=== PATIENT | male | born 1995 ===

== ENCOUNTER 2016-11-08 00:49 | Inpatient (IN) | payer OTHER ==
[2016-11-08 01:10] VITALS: O2SAT 99
--- NOTE | 2016-11-08 01:55 | ED PDOC ---
HPI: Psych/Substance Abuse Time Seen by Provider: 11/08/16 01:08 Chief Complaint (Nursing): Psychiatric Evaluation Chief Complaint (Provider): Depression History Per: Patient History/Exam Limitations: no limitations Onset/Duration Of Symptoms: Days (x 2 weeks) Current Symptoms Are (Timing): Still Present Associated Symptoms: Depression, Suicidal Thoughts, Suicidal Plan Additional Complaint(s): Alonso is a 21 y/o [place]ian male with a past medical history of depression who presents to the ED for crisis evaluation. States he left his family home 2 weeks ago and has been living on the streets of [facility]. Patient admits to feeling depressed and having suicidal ideations with a plan to hang himself. Reports history of two psychiatric admissions in the past, and noncompliance with psych medications and follow up. PMD: Dr. Hou Past Medical History Reviewed: Historical Data, Nursing Documentation, Vital Signs Vital Signs: Last Vital Signs Temp 98.7 F 11/08/16 00:55 Pulse 85 11/08/16 00:55 Resp 17 11/08/16 00:55 BP 137/85 11/08/16 00:55 Pulse Ox 99 11/08/16 00:55 - Medical History PMH: Depression - Family History Family History: States: Unknown Family Hx - Social History Current smoker - smoking cessation education provided: No Alcohol: None Drugs: Denies - Allergies Allergies/Adverse Reactions: Allergies Allergy/AdvReac Type Severity Reaction Status Date / Time pollen extracts Allergy Mild itchiness, Verified 11/08/16 01:10 red eyes Review of Systems ROS Statement: Except As Marked, All Systems Reviewed And Found Negative Psych: Positive for: Depression, Suicidal ideation. Negative for: Other ( auditory/visual hallucinations) Physical Exam - Reviewed Nursing Documentation Reviewed: Yes Vital Signs Reviewed: Yes - Physical Exam Appears: Positive for: Non-toxic, No Acute Distress Head Exam: Positive for: ATRAUMATIC, NORMAL INSPECTION, NORMOCEPHALIC Skin: Positive for: Normal Color, Warm, Dry Eye Exam: Positive for: EOMI, Normal appearance, PERRL Neck: Positive for: Normal, Painless ROM Cardiovascular/Chest: Positive for: Regular Rate, Rhythm. Negative for: Murmur Respiratory: Positive for: Normal Breath Sounds. Negative for: Accessory Muscle Use, Respiratory Distress Gastrointestinal/Abdominal: Positive for: Normal Exam, Soft. Negative for: Tenderness Back: Positive for: Normal Inspection. Negative for: L CVA Tenderness, R CVA Tenderness, Vertebral Tenderness Extremity: Positive for: Normal ROM, Capillary Refill (< 2 sec). Negative for: Pedal Edema, Deformity Neurologic/Psych: Positive for: Alert, Oriented, Mood/Affect (Flat), Other ( Appears internally preoccupied) - Laboratory Results Result Diagrams: 11/08/16 01:57 11/08/16 01:28 - ECG O2 Sat by Pulse Oximetry: 99 (RA) Pulse Ox Interpretation: Normal Medical Decision Making Medical Decision Making: Time: 1:16 Initial Impression: 21 y/o male with depression and suicidal ideations in set of known depression history Initial Plan: --Ordered crisis evaluation, EKG, and labs --Placed on 1:1 observation Time: :34 Clinical Impression: Depression --Labs show no clinically significant abnormalities --Evaluated by crisis and will be admitted for treatment and further workup with diagnosis of depression --Patient is medically stable for psychiatric admission Scribe Attestation: Documented by Yulisa Jackson, acting as a scribe for Wu Barrios MD Provider Scribe Attestation: All medical record entries made by the Scribe were at my direction and personally dictated by me. I have reviewed the chart and agree that the record accurately reflects my personal performance of the history, physical exam, medical decision making, and the department course for this patient. I have also personally directed, reviewed, and agree with the discharge instructions and disposition. Disposition - Clinical Impression Clinical Impression: Depression - Patient ED Disposition Is Patient to be Admitted: Yes - Disposition Disposition: Transfer of Care Disposition Time: 03:34 Condition: FAIR Forms: [employer] (Taiwanese) Patient Signed Over To: Andree Chávez - Pt Status Changed To: Hospital Disposition Of: Inpatient - Admit Certification Admit to Inpatient:: After my assessment, the patient will require hospitalization for at least two midnights. This is because of the severity of symptoms shown, intensity of services needed, and/or the medical risk in this patient being treated as an outpatient. - POA Present On Arrival: None
[2016-11-08 01:57] LABS: RBC URINE 4 /hpf (0-3); URINE BACTERIA OCC (<OCC); URINE BILIRUBIN NEGATIVE (NEGATIVE); URINE BLOOD NEGATIVE (NEGATIVE); URINE CALCIUM OXALATE CRYSTALS OCC /hpf (<OCC); URINE COLOR YELLOW (YELLOW); URINE GLUCOSE (UA) NEG (Normal); URINE KETONE NEGATIVE (NEGATIVE); URINE LEUKOCYTE ESTERASE NEG Leu/uL (Negative); URINE PROTEIN NEGATIVE (NEGATIVE); URINE UROBILINOGEN 0.2-1.0 mg/dL (0.2-1.0); WBC URINE 1 /hpf (0-5)
[2016-11-08 02:03] LABS: BASO # 0.1 K/uL (0.0-0.2); BASO % 0.9 % (0.0-2.0); EOS # 0.6 K/uL (0.0-0.7); EOS % 5.8 % (0.0-4.0); HEMATOCRIT 41.4 % (35.0-51.0); LYMPH # 3.7 K/uL (1.0-4.3); LYMPH % 36.7 % (20.0-40.0); MEAN CELL VOLUME 81.3 fl (80.0-94.0); MEAN CORPUSCULAR HEMOGLOBIN 27.2 pg (27.0-31.0); MEAN CORPUSCULAR HGB CONC 33.4 g/dL (33.0-37.0); MONO # 0.8 K/uL (0.0-0.8); MONO % 7.9 % (0.0-10.0); NEUT # 4.9 K/uL (1.8-7.0); NEUT % 48.7 % (50.0-75.0); RED CELL DISTRIBUTION WIDTH 12.4 % (11.5-14.5); WHITE BLOOD COUNT 10.1 K/uL (4.8-10.8)
[2016-11-08 02:03] LABS: BLOOD UREA NITROGEN 14 mg/dl (9-20); CHLORIDE 106 mmol/L (98-107); GFR AFRICAN-AMERICAN > 60; GLUCOSE,RANDOM 98 mg/dL (75-110); POTASSIUM 4.2 MMOL/L (3.6-5.0); SODIUM 139 mmol/l (132-148)
[2016-11-08 02:04] LABS: ALB/GLOB RATIO 1.4 (1.0-2.1); ALCOHOL SERUM < 10 mg/dl (0-10); ALKALINE PHOSPHATASE 63 U/L (38-126); ALT/SGPT 44 U/L (21-72); AST/SGOT 31 U/L (17-59); BILIRUBIN,TOTAL 0.7 mg/dl (0.2-1.3); CALCIUM 9.4 mg/dL (8.4-10.2); CARBON DIOXIDE 25 mmol/L (22-30); TOTAL PROTEIN 6.8 G/DL (6.3-8.2)
[2016-11-08] MEDS ORDERED: Alum-Mag Hydrox-Simethicone Susp (30 mL) PO PRN (06:07)
[2016-11-08] MEDS ORDERED: Magnesium Hydroxide Susp 30 ml UD PO PRN (06:07)
[2016-11-08] MEDS ORDERED: DiphenhydrAMINE 50 mg/ml Inj IM PRN (06:07)
--- NOTE | 2016-11-08 06:22 | PCM.BM ---
<Adam Barbour - Last Filed: 11/08/16 06:21> Treatment Plan Problems - Problems identified on initial assessmt Hopelessness/ Helplessness Date Initiated: 11/08/16 Time Initiated: 06:21 Assessment reference: NA Status: Active Treatment assets and liabiliti Patient Assests: cooperative, ADL independent, physically healthy Patient Liabilities: poor support system - Milieu Protocol Maintain good personal hygiene: every shift Encourage regular showers, every shift Remind patient to perform daily oral care, every shift Assist patient to perform ADL's Maintain personal safety: daily Educate patient to report safety concerns to staff, daily Monitor environment for contraband/sharps Medication safety: Monitor for expected outcome, potential side effects: daily, Assess barriers to learning: daily, Assess readiness for medication education: daily <Andree Chávez - Last Filed: 11/08/16 12:37> - Diagnosis (1) Bipolar disorder Status: Acute Interventions: Medication management, Individual and group therapy, Psychoeducation 11/08/16 12:37 <Elke Adams - Last Filed: 11/09/16 11:57> Family Contact Family contact: Patient agrees to contact, Telephone contact initiated by staff , Family meeting planned to review treatment plan Family contact name: Kwame Sanchez (cousin) Family contacted how many times per week?: 2 Family contact comment: [phone] - Goals for Treatment Patient goals for treatment: "I want this feeling to stop, it is disturbing." Discharge/Continuing Care - Education Needs Education Needs: Family Medication, Family Diagnosis/Disease Process, Family Coping Skills, Family Placement options, Family Community resources, Family Aftercare Safety Plan, Patient Medication, Patient Diagnosis/Disease Process, Patient Coping Skills, Patient Placement options, Patient Community resources, Patient Aftercare Safety Plan - Discharge Discharge Criteria: Tolerates medication w/o severe side effects, Normal sleep pattern, Reduction of target symptoms, Other (Medication compliance; less manic episodes) Discharge to:: Home, With Family - Additional Comments 11/09/16 10:55 Pt seen and discussed in team meeting. Reason for admission discussed and reviewed at length. Pt's medical and social issues discussed. Pt's medications reviewed. Attending psychiatrist, provided medication education and recommendations. Pt is not agreeable to increasing Abilify at the moment. Tx plan discussed and pt is agreeable. Pathologist Assistant will continue to follow case - Treatment Team Participation Discussed with Family/SO: Yes (Will discuss via telephone) Was Patient/Family/SO present at Treatment Team Meeting: Yes
--- NOTE | 2016-11-08 08:31 | PCM.PSYCH ---
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 Pt stated he has been feeling depressed for 3 years and stated tonight he is suicidal with a plan to hang himself. Pt stated instead of him hanging himself, he came into ED due to him knowing that is where he will end up if he hangs himself. Pt stated he has attempted to hang himself 4-5 months ago but stopped due to the fear of someone finding him. Pt stated he is unhappy with the world and nature. Pt stated he does not feel interested in anything and does not want to put the effort into being interested in anything. Pt denied HI/AH/VH. Pt stated he left his home where he stays with his parents and brother in [place], [place] 2 weeks ago. Pt stated he left his home due to bad choices he has made in the past and that he has let his family down. Pt could not elaborate on what he meant by the previous statement when cw asked a few times. Pt stated this is not the first time he has left the home, so his family is used to it. Pt stated his sleep and appetite are normal. Patient reports that 2 years ago he has an episode in which he left his home for two weeks without telling anyone, spent all of his money, used his credit cards, lived in hotels in [facility] where he planned various ways to kill himself. Then he went to [place] without any money and continued to plan to kill himself. His parents reported him as a missing person. Eventually he called his ex-girlfriend and his family was able to find him. He reports that he has periods of time with racing thoughts, decreased need for sleep and increased goal oriented activities. He reports that he stopped going to school because he felt that he could study on his own and spent several days reading book, trying to learn to computer programing by himself. Currently the patient is circumstantial/tangential. He expressed some grandiose ideation that he is more skilled/talented than others. He reports that he feels that he may not be safe if he would leave the hospital due to continued suicidal ideation. He is able to contract for safety while admitted Concert Singer discussed starting Abilify 10 mg PO Daily. r/b/se reviewed. Patient given a handout on Abilify. PPHx: Pt stated he was inpatient at [facility] 3 years ago and 1 year ago was inpatient at [facility] in [place]. No current outpatient treatment or medications. He does not know which medications he took in the past. PMHx: Denies acute medical issues All: Pollen SHx: Unemployed, previously worked in a [employer]. Lives w/ parents. Denies current drug use, but does reports that he snorted heroin and smoked crack a year ago. Pt stated he drinks beer and whiskey occasionally and smokes marijuana sometimes. Pt stated he has had a DUI 6-7 months ago and was in trouble 3 years ago for possession of marijuana at a alliance party. Utox negative. FHx: Denies family history of mental illness Current Medications: Active Medications Generic Name Dose Route Start Last Admin Trade Name Freq PRN Reason Stop Dose Admin Acetaminophen 650 mg 11/08/16 06:07 Tylenol 325mg Tab PO Q4 PRN Pain, moderate (4-7) Al Hydrox/Mg Hydrox/Simethicone 30 ml 11/08/16 06:07 Maalox Plus 30 Ml PO Q4 PRN Dyspepsia Diphenhydramine HCl 50 mg 11/08/16 06:07 Benadryl IM Q6 PRN Extrapyramidal S/S Unable PO Diphenhydramine HCl 50 mg 11/08/16 06:07 Benadryl PO Q6 PRN Extrapyramidal Symptoms Diphenhydramine HCl 50 mg 11/08/16 06:07 Benadryl PO HS PRN Sleep Haloperidol 5 mg 11/08/16 06:07 Haldol PO Q4 PRN Agitation Haloperidol Lactate 5 mg 11/08/16 06:07 Haldol IM Q4 PRN Agitation, Unable to Take PO Lorazepam 2 mg 11/08/16 06:07 Ativan IM Q4 PRN Anxiety/Agitation,Unable PO Lorazepam 2 mg 11/08/16 06:07 Ativan PO Q4 PRN Anxiety/Agitation Magnesium Hydroxide 30 ml 11/08/16 06:07 Milk Of Magnesia PO HS PRN Constipation Sertraline HCl 50 mg 11/08/16 09:00 Zoloft PO DAILY [facility] Past Psychiatric History - Past Psychiatric History Previous Treatment History: Inpatient Pertinent Medical Hx (Current Medical&Sleep Prob, Allergies): Allergies Allergy/AdvReac Type Severity Reaction Status Date / Time pollen extracts Allergy Mild itchiness, Verified 11/08/16 01:10 red eyes Review of Systems - Psychiatric Psychiatric: As Per HPI, Behavioral Changes, Depression, Difficulty Concentrating, Mood Swings, Paranoia, Suicidal Ideation Mental Status Examination - Personal Presentation Personal Presentation: Looks stated age - Affect Affect: Constricted - Motor Activity Motor Activity: Calm - Reliability in Providing Information Reliability in Providing Information: Fair - Speech Speech: Irrelevant (At times), Tangential, Coherent - Mood Mood: Depressed - Formal Thought Process Formal Thought Process: Loosening of associations, Circumstantial, Other ( Grandiose) - Hallucinations/Delusions Additional comments: Denies AH/VH/paranoia/delusions - Obsessions/Compulsions Obsessions: No Compulsions: No - Cognitive Functions Orientation: Person, Place, Situation, Time Sensorium: Alert Attention/Concentration: Attentive Estimate of Intelligence: Average Judgement: Intact, as evidence by: Insight regarding need for hospitalization Memory: Recent intact, as evidence by: Ability to recall events of the day, Remote intact, as evidenced by: Abilit to recall sig. life events, Remote intact , as evidenced by: Ability to recall historical events - Risk Risk: Suicidal, Diminished functioning - Strength & Assets Inventory Strength & Assets Inventory: Family support, Cooperative DSM 5 DX - DSM 5 DSM 5 Diagnosis: Bipolar Disorder - Recommended/Plan of Treatment Treatment Recommendations and Plan of Treatment: Bipolar Disorder; patient needs hospitalization for treatment, safety and stabilization. -Admit to psychiatry -Individual and group therapy -Start Abilify 10 mg PO Daily, r/b/se reviewed -Obtain collateral history -Hospitalist consult -Disposition planning -No 1:1 indicated, patient able to contract for safety at this time Projected ELOS: 5-7 days Discharge Plan and Discharge Criteria: Discharge when not an acute danger to self or other. Discharge when psychiatrically stable. - Smoking Cessation Smoking Cessation Initiated: No Reason for not providing: Not indicated
[2016-11-08 09:28] LABS: T4 8.05 ug/dl (5.5-11.0)
[2016-11-08 09:41] LABS: THYROID STIMULATING HORMONE 0.83 mIU/ML (0.46-4.68)
--- NOTE | 2016-11-08 10:35 | RAD ---
HISTORY: crisis COMPARISON: No prior. FINDINGS: LUNGS: No active pulmonary disease. PLEURA: No significant pleural effusion identified, no pneumothorax apparent. CARDIOVASCULAR: Normal. OSSEOUS STRUCTURES: No significant abnormalities. VISUALIZED UPPER ABDOMEN: Normal. OTHER FINDINGS: None. IMPRESSION: No active disease.
--- NOTE | 2016-11-08 15:42 | CP.PCM.CON ---
History of Present Illness - History of Present Illness History of Present Illness: 21 yo male with history of depression admitted to psyche because of suicidal ideation. Review of Systems - Review of Systems All systems: reviewed and no additional remarkable complaints except (aside from those mentioned above, 12 point system review were negative by me) Past Patient History - Tetanus Immunizations Tetanus Immunization: Unknown - Past Medical History & Family History Past Medical History?: No - Past Social History Smoking Status: Never Smoked Alcohol: None Drugs: Denies - CARDIAC Hx Cardiac Disorders: No Hx Hypertension: No - PULMONARY Hx Tuberculosis: No - NEUROLOGICAL HX Cerebrovascular Accident: No Hx Seizures: No - HEMATOLOGICAL/ONCOLOGICAL Hx Cancer: No Hx Human Immunodeficiency Virus (HIV): No - GENITOURINARY/GYNECOLOGICAL Hx Sexually Transmitted Disorders: No - PSYCHIATRIC Hx Depression: Yes Hx Substance Use: No - SURGICAL HISTORY Hx Appendectomy: Yes - ANESTHESIA Hx Anesthesia: No Meds Allergies/Adverse Reactions: Allergies Allergy/AdvReac Type Severity Reaction Status Date / Time pollen extracts Allergy Mild itchiness, Verified 11/08/16 01:10 red eyes - Medications Medications: Current Medications Acetaminophen (Tylenol 325mg Tab) 650 mg PO Q4 PRN PRN Reason: Pain, moderate (4-7) Al Hydrox/Mg Hydrox/Simethicone (Maalox Plus 30 Ml) 30 ml PO Q4 PRN PRN Reason: Dyspepsia Aripiprazole (Abilify) 10 mg PO DAILY [facility] Last Admin: 11/08/16 13:33 Dose: 10 mg Diphenhydramine HCl (Benadryl) 50 mg IM Q6 PRN PRN Reason: Extrapyramidal S/S Unable PO Diphenhydramine HCl (Benadryl) 50 mg PO Q6 PRN PRN Reason: Extrapyramidal Symptoms Diphenhydramine HCl (Benadryl) 50 mg PO HS PRN PRN Reason: Sleep Haloperidol (Haldol) 5 mg PO Q4 PRN PRN Reason: Agitation Haloperidol Lactate (Haldol) 5 mg IM Q4 PRN PRN Reason: Agitation, Unable to Take PO Loratadine (Claritin) 10 mg PO DAILY [facility] Last Admin: 11/08/16 10:51 Dose: 10 mg Lorazepam (Ativan) 2 mg IM Q4 PRN PRN Reason: Anxiety/Agitation,Unable PO Lorazepam (Ativan) 2 mg PO Q4 PRN PRN Reason: Anxiety/Agitation Magnesium Hydroxide (Milk Of Magnesia) 30 ml PO HS PRN PRN Reason: Constipation Physical Exam - Constitutional Appears: No Acute Distress - Head Exam Head Exam: ATRAUMATIC - Eye Exam Eye Exam: absent: Scleral icterus - ENT Exam ENT Exam: Mucous Membranes Moist - Neck Exam Neck exam: Negative for: Meningismus - Respiratory Exam Respiratory Exam: absent: Rhonchi, Wheezes, Respiratory Distress - Cardiovascular Exam Cardiovascular Exam: REGULAR RHYTHM, +S1, +S2 - GI/Abdominal Exam GI & Abdominal Exam: Soft. absent: Tenderness - Rectal Exam Rectal Exam: Deferred - Extremities Exam Extremities exam: Negative for: pedal edema - Neurological Exam Neurological exam: Alert - Psychiatric Exam Psychiatric exam: Normal Affect - Skin Skin Exam: Dry, Intact Results - Vital Signs Recent Vital Signs: Last Vital Signs Temp 98.7 F 11/08/16 00:55 Pulse 85 11/08/16 00:55 Resp 20 11/08/16 05:19 BP 137/85 11/08/16 00:55 Pulse Ox 99 11/08/16 03:42 - Labs Result Diagrams: 11/08/16 01:57 11/08/16 01:28 Labs: Laboratory Results - last 24 hr 11/08/16 11/08/16 11/08/16 01:28 01:28 01:28 WBC RBC Hgb Hct MCV MCH MCHC RDW Plt Count MPV Neut % (Auto) Lymph % (Auto) [place] % (Auto) Eos % (Auto) Baso % (Auto) Neut # Lymph # [place] # Eos # Baso # Sodium 139 Potassium 4.2 Chloride 106 Carbon Dioxide 25 Anion Gap 12 BUN 14 Creatinine 1.0 Est GFR ( Amer) > 60 Est GFR (Non-Af Amer) > 60 Random Glucose 98 Calcium 9.4 Total Bilirubin 0.7 AST 31 ALT 44 Alkaline Phosphatase 63 Total Protein 6.8 Albumin 4.0 Globulin 2.8 Albumin/Globulin Ratio 1.4 Triglycerides Cholesterol LDL Cholesterol Direct HDL Cholesterol Thyroxine (T4) TSH 3rd Generation Urine Color Yellow Urine Clarity Slighty-cloudy Urine pH 5.0 Ur Specific [place] 1.028 Urine Protein Negative Urine Glucose (UA) Neg Urine Ketones Negative Urine Blood Negative Urine Nitrate Negative Urine Bilirubin Negative Urine Urobilinogen 0.2-1.0 Ur Leukocyte Esterase Neg Urine RBC (Auto) 4 H Urine Microscopic WBC 1 Calcium Oxalate Crystal Occ H Urine Bacteria Occ H Urine Opiates Screen Negative Urine Methadone Screen Negative Ur Barbiturates Screen Negative Ur Phencyclidine Scrn Negative Ur Amphetamines Screen Negative U Benzodiazepines Scrn Negative U Oth Cocaine Metabols Negative U Cannabinoids Screen Negative Alcohol, Quantitative < 10 11/08/16 11/08/16 01:57 08:20 WBC 10.1 RBC 5.09 Hgb 13.8 Hct 41.4 MCV 81.3 MCH 27.2 MCHC 33.4 RDW 12.4 Plt Count 215 MPV 8.0 Neut % (Auto) 48.7 L Lymph % (Auto) 36.7 [place] % (Auto) 7.9 Eos % (Auto) 5.8 H Baso % (Auto) 0.9 Neut # 4.9 Lymph # 3.7 [place] # 0.8 Eos # 0.6 Baso # 0.1 Sodium Potassium Chloride Carbon Dioxide Anion Gap BUN Creatinine Est GFR ( Amer) Est GFR (Non-Af Amer) Random Glucose Calcium Total Bilirubin AST ALT Alkaline Phosphatase Total Protein Albumin Globulin Albumin/Globulin Ratio Triglycerides 103 Cholesterol 132 LDL Cholesterol Direct 77 HDL Cholesterol 38 Thyroxine (T4) 8.05 TSH 3rd Generation 0.83 Urine Color Urine Clarity Urine pH Ur Specific [place] Urine Protein Urine Glucose (UA) Urine Ketones Urine Blood Urine Nitrate Urine Bilirubin Urine Urobilinogen Ur Leukocyte Esterase Urine RBC (Auto) Urine Microscopic WBC Calcium Oxalate Crystal Urine Bacteria Urine Opiates Screen Urine Methadone Screen Ur Barbiturates Screen Ur Phencyclidine Scrn Ur Amphetamines Screen U Benzodiazepines Scrn U Oth Cocaine Metabols U Cannabinoids Screen Alcohol, Quantitative Assessment & Plan (1) Suicidal ideation Status: Acute Comment: psyche is managing
--- NOTE | 2016-11-09 08:58 | PCM.PYCHPN ---
Psychiatric Progress Note - Psychiatric Progress Note Patient seen today, length of contact: Patient evaluated, case discussed with team, chart reviewed, 35 min Patient Chief Complaint: "I'm feeling a little better" Problems Identified/Issues Discussed: Patient continues to have circumstantial speech w/ thought blocking. He continues to be tangential and discuss irrevelant topics at times. He continues to express grandiose beliefs, like that he can learn all the religions in the world. He denies adverse effects to Abilify. No acute medical complaints. Medication Change: No Medical Record Reviewed: Yes Mental Status Examination - Cognitive Function Orientation: Person, Place, Situation, Time Memory: Intact Attention: WNL Concentration: WNL Association: WNL Fund of Knowledge: WNL Decription of patient's judgement and insights: Poor insight/ fair judgment - Mood Mood: Depressed - Affect Affect: Constricted - Speech Speech: Appropriate - Formal Thought Process Formal Thought Process: Loosening of associations, Circumstantial, Other ( Grandiose, thought blocking at times) Psychotic Thoughts and Behaviors: Denies AH/VH - Suicidal Ideation Suicidal Ideation: No - Homicidal Ideation Homicidal Ideation: No Goal/Treatment Plan - Goal/Treatment Plan Need for Continued Stay: Remain at risks for inpatient hospitalization, Discharge may exacerbated symptoms, Severe functional impairment Progress Toward Problem(s) and Goals/Treatment Plan: Bipolar Disorder; patient needs hospitalization for treatment, safety and stabilization. -Individual and group therapy -Continue Abilify 10 mg PO Daily, r/b/se reviewed; may increase to 15 mg PO Daily if indicated -Obtain collateral history -Hospitalist consult -Disposition planning -No 1:1 indicated, patient able to contract for safety at this time Estimated Date of D/C: 11/14/16 - Smoking Cessation Smoking Cessation Initiated: No Reason for not providing: Not indicated
--- NOTE | 2016-11-10 11:15 | PCM.PYCHPN ---
Psychiatric Progress Note - Psychiatric Progress Note Patient seen today, length of contact: pt seen and evaluated Patient Chief Complaint: pt has remained disorganized and tangential with poor insight and poor judgement Medication Change: No Medical Record Reviewed: Yes Mental Status Examination - Cognitive Function Orientation: Person, Place, Situation, Time Memory: Intact Attention: WNL Concentration: WNL Association: WNL Fund of Knowledge: WNL - Mood Mood: Depressed - Affect Affect: Constricted - Speech Speech: Appropriate - Formal Thought Process Formal Thought Process: Loosening of associations, Circumstantial, Other ( Grandiose, thought blocking at times) - Suicidal Ideation Suicidal Ideation: No - Homicidal Ideation Homicidal Ideation: No Goal/Treatment Plan - Goal/Treatment Plan Need for Continued Stay: Remain at risks for inpatient hospitalization, Discharge may exacerbated symptoms, Severe functional impairment Estimated Date of D/C: 11/14/16
--- NOTE | 2016-11-11 18:40 | PCM.PYCHPN ---
Psychiatric Progress Note - Psychiatric Progress Note Patient seen today, length of contact: pt seen and evaluated Patient Chief Complaint: pt has remained disorganized and tangential with poor insight and poor judgement pt c/o some vague breathing problem with meds but does not want mes to be changed and sdays he can manage it.pt does not appear in any distress Medication Change: No Medical Record Reviewed: Yes Mental Status Examination - Cognitive Function Orientation: Person, Place, Situation, Time Memory: Intact Attention: WNL Concentration: WNL Association: WNL Fund of Knowledge: WNL - Mood Mood: Depressed - Affect Affect: Constricted - Speech Speech: Appropriate - Formal Thought Process Formal Thought Process: Loosening of associations, Circumstantial, Other ( Grandiose, thought blocking at times) - Suicidal Ideation Suicidal Ideation: No - Homicidal Ideation Homicidal Ideation: No Goal/Treatment Plan - Goal/Treatment Plan Need for Continued Stay: Remain at risks for inpatient hospitalization, Discharge may exacerbated symptoms, Severe functional impairment Estimated Date of D/C: 11/14/16
--- NOTE | 2016-11-12 10:43 | PCM.PYCHPN ---
Psychiatric Progress Note - Psychiatric Progress Note Patient seen today, length of contact: Patient evaluated, case discussed with team, chart reviewed, 35 min Patient Chief Complaint: "I'm feeling a little better" Problems Identified/Issues Discussed: Patient is more organized on conversation, with less circumstantial speech/ thought blocking. He reports that his mood is improving and he no longer has suicidal ideation/plan/intent. We discussed coping mechanisms and the importance of compliance with treatment and medications. He denies adverse effects to Abilify. We discussed increasing the Abilify to 15 mg PO Daily. No acute medical complaints. Medication Change: Yes (Increase Abilify to 15 mg PO Daily) Medical Record Reviewed: Yes Mental Status Examination - Cognitive Function Orientation: Person, Place, Situation, Time Memory: Intact Attention: WNL Concentration: WNL Association: WNL Fund of Knowledge: WN Decription of patient's judgement and insights: Improving I/J - Mood Mood: Anxious - Affect Affect: Broad - Speech Speech: Appropriate - Formal Thought Process Formal Thought Process: Loosening of associations, Circumstantial, Other (Less grandiose, less thought blocking at times) Psychotic Thoughts and Behaviors: No AH/VH/paranoia/delusions - Suicidal Ideation Suicidal Ideation: No - Homicidal Ideation Homicidal Ideation: No Goal/Treatment Plan - Goal/Treatment Plan Need for Continued Stay: Remain at risks for inpatient hospitalization, Discharge may exacerbated symptoms, Severe functional impairment Progress Toward Problem(s) and Goals/Treatment Plan: Bipolar Disorder; patient needs hospitalization for treatment, safety and stabilization. -Individual and group therapy -Increase Abilify to 15 mg PO Daily -Collateral history obtained from cousin who confirms history reported by the patient -Hospitalist consult appreciated -Disposition planning- possible discharge Saturday -No 1:1 indicated, patient able to contract for safety at this time Estimated Date of D/C: 11/14/16 - Smoking Cessation Smoking Cessation Initiated: No Reason for not providing: Not indicated
[2016-11-12 15:40] VITALS: RESP 20
--- NOTE | 2016-11-13 09:39 | PCM.PYCHPN ---
Psychiatric Progress Note - Psychiatric Progress Note Patient seen today, length of contact: Patient evaluated, case discussed with team, chart reviewed, 35 min Patient Chief Complaint: "My thoughts are clearer." Problems Identified/Issues Discussed: Patient is more organized on conversation, with less circumstantial speech/ thought blocking. He is able to recognize that his thoughts were not clear prior to admission. He reports that his mood is improving and he no longer has suicidal ideation/plan/intent. We discussed the importance of compliance with treatment and medications. We discussed how drugs/ etoh can worsen mental health. He denies adverse effects to Abilify. No acute medical complaints. Medication Change: No Medical Record Reviewed: Yes Mental Status Examination - Cognitive Function Orientation: Person, Place, Situation, Time Memory: Intact Attention: WNL Concentration: WNL Association: WNL Fund of Knowledge: [facility] Decription of patient's judgement and insights: Improving I/J - Mood Mood: Anxious - Affect Affect: Broad - Speech Speech: Appropriate - Formal Thought Process Formal Thought Process: No Impairment Psychotic Thoughts and Behaviors: No AH/VH/paranoia/delusions - Suicidal Ideation Suicidal Ideation: No - Homicidal Ideation Homicidal Ideation: No Goal/Treatment Plan - Goal/Treatment Plan Need for Continued Stay: Remain at risks for inpatient hospitalization, Discharge may exacerbated symptoms, Severe functional impairment Progress Toward Problem(s) and Goals/Treatment Plan: Bipolar Disorder; patient is improving clinically; will likely be discharged tomorrow if he continues to improve clinically. -Individual and group therapy -Continue Abilify 15 mg PO Daily -Hospitalist consult appreciated -Disposition planning- likely discharge Saturday Estimated Date of D/C: 11/14/16 - Smoking Cessation Smoking Cessation Initiated: No Reason for not providing: Not indicated
[2016-11-14 05:52] VITALS: BP 131/66; PULSE 83; TEMP 97.7
--- NOTE | 2016-11-14 09:11 | PCM.PYCHDC ---
Mental Status Examination - Mental Status Examination Orientation: Person, Place, Situation, Time Memory: Intact Mood: Neutral Affect: Broad Speech: Appropriate Attention: WNL Concentration: WNL Association: WNL Fund of Knowledge: WNL Formal Thought Process: No Impairment Description of patient's judgement and insight: Fair I/J Psychotic Thoughts and Behaviors: No AH/VH/paranoia/delusions Suicidal Ideation: No Current Homicidal Ideation?: No Discharge Summary - Discharge Note Reason for Hospitalization: HPI: 21 yo [employer] male who brought himself into ED secondary to feeling suicidal. Pt stated he has been feeling depressed for 3 years and stated tonight he is suicidal with a plan to hang himself. Pt stated instead of him hanging himself, he came into ED due to him knowing that is where he will end up if he hangs himself. Pt stated he has attempted to hang himself 4-5 months ago but stopped due to the fear of someone finding him. Pt stated he is unhappy with the world and nature. Pt stated he does not feel interested in anything and does not want to put the effort into being interested in anything. Pt denied HI/AH/VH. Pt stated he left his home where he stays with his parents and brother in [place], [place] 2 weeks ago. Pt stated he left his home due to bad choices he has made in the past and that he has let his family down. Pt could not elaborate on what he meant by the previous statement when cw asked a few times. Pt stated this is not the first time he has left the home, so his family is used to it. Pt stated his sleep and appetite are normal. Patient reports that 2 years ago he has an episode in which he left his home for two weeks without telling anyone, spent all of his money, used his credit cards, lived in hotels in [facility] where he planned various ways to kill himself. Then he went to [place] without any money and continued to plan to kill himself. His parents reported him as a missing person. Eventually he called his ex-girlfriend and his family was able to find him. He reports that he has periods of time with racing thoughts, decreased need for sleep and increased goal oriented activities. He reports that he stopped going to school because he felt that he could study on his own and spent several days reading book, trying to learn to computer programing by himself. Currently the patient is circumstantial/tangential. He expressed some grandiose ideation that he is more skilled/talented than others. He reports that he feels that he may not be safe if he would leave the hospital due to continued suicidal ideation. He is able to contract for safety while admitted [facility] discussed starting Abilify 10 mg PO Daily. r/b/se reviewed. Patient given a handout on Abilify. PPHx: Pt stated he was inpatient at [facility] 3 years ago and 1 year ago was inpatient at [facility]. No current outpatient treatment or medications. He does not know which medications he took in the past. PMHx: Denies acute medical issues All: [place] SHx: Unemployed, previously worked in a warehouse. Lives w/ parents. Denies current drug use, but does reports that he snorted heroin and smoked crack a year ago. Pt stated he drinks beer and whiskey occasionally and smokes marijuana sometimes. Pt stated he has had a DUI 6-7 months ago and was in trouble 3 years ago for possession of marijuana at a democrat. Utox negative. FHx: Denies family history of mental illness Consultations:: List each consultation separately and include: 1. Reason for request. 2. Findings. 3. Follow-up Consultations: Medicine consult Summary of Hospital Course include:: 1. Description of specific treatment plan utilized for patients during their course of treatmen. 2. Summarize the time- course for resolution of acute symptoms and/or regressed behaviors. 3. Describe issues identified and worked on during hospitalization. 4. Describe medication utilized. 5. Describe medical problems identified and treated. 6. Reassessment of suicide risk Summary of Hospital Course: Patient was admitted to the psychiatry unit. Individual and group therapy were provided. Patient was stabilized on Abilify 10 mg PO Daily. Patient was treated up to 15 mg PO Daily, but this caused akithesia, so it was lowered back to 10 mg PO daily. Patient is not an acute danger to self or others at this time. He is not acutely depressed or manic. He is psychiatrically stable for discharge. - Diagnosis (1) Bipolar disorder Current Visit: Yes Status: Acute - Final Diagnosis (DSM 5) Condition upon Discharge: STABLE DSM 5: Bipolar Disorder Disposition: HOME/ ROUTINE Follow-up Treatment Plan: Bipolar Disorder; patient is psychiatrically stable for discharge -Individual and group therapy -Continue Abilify 10 mg PO Daily -Hospitalist consult appreciated -Disposition planning- discharge w/ IOP follow-up Prescriptions/Medication Reconciliation: ARIPiprazole [Abilify] 10 mg PO DAILY #30 tab - Smoking Cessation Smoking Cessation Medication prescribed: No Reason for not providing: Not indicated - Antipsychotic Medications Pt discharged on 2 or more routine antipsychotic medications: No
== END 2016-11-14 12:30 | disposition home or self-care (01) | DRG 885 ==
LOC: H.ER 00:49 → H.ERHOLD 03:34 → H.STEP 05:17
PROVIDERS: ADMIT Psychiatry & Neurology Psychiatry; ATTEND Psychiatry & Neurology Psychiatry
PROC: GZHZZZZ Group Psychotherapy (ICD-10-PCS; principal; 2016-11-08)
PROC: GZ58ZZZ Individual Psychotherapy, Cognitive-Behavioral (ICD-10-PCS; 2016-11-08)
DX: F31.9 Bipolar disorder, unspecified (principal); R45.851 Suicidal ideations; F12.90 Cannabis use, unspecified, uncomplicated; Z91.19 Patient's noncompliance with other medical treatment and regimen